=== PATIENT | female | born 1990 | race Two or more races ===

== ENCOUNTER 2019-08-02 23:23 | Emergency (ER) | payer MEDICAID ==
[~2019-08-02] VITALS: Ht 165.1 cm; Wt 140.0 kg
[2019-08-03] MEDS ORDERED: DIPHENHYDRAMINE 50MG/ML VIAL IV ONE (00:15)
[2019-08-03] MEDS ORDERED: SODIUM CHLORIDE 0.9% 1,000 ML IV SCH (00:32)
[2019-08-03] MEDS ORDERED: ONDANSETRON HCL 4MG/2ML INJ IV ONE (00:45)
[2019-08-03 04:51] VITALS: BP 119/53
== END 2019-08-03 04:53 | disposition home or self-care (01) ==
LOC: ER 23:23
DX: L27.1 Localized skin eruption due to drugs and medicaments taken internally (principal); T48.4X5A Adverse effect of expectorants, initial encounter; Y92.098 Other place in other non-institutional residence as the place of occurrence of the external cause
CPT/HCPCS: 96374; 96375; 99284; J1200; J2405

== ENCOUNTER 2019-08-19 14:03 | Emergency (ER) | payer MEDICAID ==
[~2019-08-19] VITALS: Ht 160 cm; Wt 97.0 kg
[2019-08-19] MEDS ORDERED: SODIUM CHLORIDE 0.9% 1,000 ML IV SCH (14:34)
[2019-08-19] MEDS ORDERED: FAMOTIDINE 20MG/2ML VIAL IV ONE (14:45)
[2019-08-19] MEDS ORDERED: DIPHENHYDRAMINE 50MG/ML VIAL IV ONE (14:45)
[2019-08-19] MEDS ORDERED: METHYLPREDNISOLONE SOD SUCC 125 MG/2 ML VIAL IV ONE (14:45)
[2019-08-19 16:44] VITALS: BP 126/60
== END 2019-08-19 16:45 | disposition home or self-care (01) ==
LOC: ER 14:03
DX: R06.02 Shortness of breath (principal); R05 Cough; R91.8 Other nonspecific abnormal finding of lung field; T48.4X5A Adverse effect of expectorants, initial encounter; Y92.89 Other specified places as the place of occurrence of the external cause
CPT/HCPCS: 71045; 96361; 96374; 96375; 99284; J1200; J2930; J3490

== ENCOUNTER 2019-08-21 11:19 | Emergency (ER) | payer MEDICAID ==
[~2019-08-21] VITALS: Ht 157.5 cm; Wt 92.0 kg
[2019-08-21 11:25] VITALS: BP 134/72
== END 2019-08-21 12:31 | disposition home or self-care (01) ==
LOC: ER 11:19
DX: R91.8 Other nonspecific abnormal finding of lung field (principal); R05 Cough; R06.02 Shortness of breath; Z98.890 Other specified postprocedural states; Z90.49 Acquired absence of other specified parts of digestive tract
CPT/HCPCS: 71045; 99283

== ENCOUNTER 2019-10-12 19:14 | Emergency (ER) | payer MEDICAID ==
[~2019-10-12] VITALS: Ht 172.7 cm; Wt 111.0 kg
[2019-10-12] MEDS ORDERED: EPINEPHRINE 0.1MG/ML (1:10,000) 10ML SYR ONE (19:36)
[2019-10-12] MEDS ORDERED: IPRATROPIUM/ALBUTEROL 0.5-3(2.5)MG/3ML NEB HHN ONE (19:45)
[2019-10-12] MEDS ORDERED: METHYLPREDNISOLONE SOD SUCC 125 MG/2 ML VIAL IV ONE (19:45)
[2019-10-12] MEDS ORDERED: EPINEPHRINE 1:1000 1 MG/ML AMP IM ONE (19:45)
[2019-10-12 20:01] LABS: CHLORIDE 106 mEq/L (98-107)
[2019-10-12 20:04] LABS: PROTHROMBIN TIME 10.6 sec (9.6-11.0)
[2019-10-12 20:16] LABS: BASOPHILS % 0.2 % (0.0-2.0); EOSINOPHILS % 0.7 % (0.0-5.0); HEMATOCRIT. 48.5 % (36.0-48.0); HEMOGLOBIN. 15.8 g/dL (12.0-16.0); LYMPHOCYTES % 60.9 % (20.0-50.0); MEAN CORPUSCULAR HEMOGLOBIN 26.2 pg (28.0-32.0); MEAN CORPUSCULAR VOLUME 80.5 fL (81.0-99.0); MEAN PLATELET VOLUME 10.8 fl (7.4-10.4); NEUTROPHILS % 34.2 % (40.0-76.0); PLATELET 475 x1000/uL (130-400); RED BLOOD CELL COUNT 6.02 mill/uL (4.2-5.4); RED CELL DISTRIBUTION WIDTH 15.4 % (11.6-14.6)
[2019-10-12 21:50] VITALS: BP 133/61
== END 2019-10-12 23:50 | disposition home or self-care (01) ==
LOC: ER 19:14
DX: R06.2 Wheezing (principal); R21 Rash and other nonspecific skin eruption
CPT/HCPCS: 36415; 71045; 80053; 85025; 85610; 94640; 96372; 96374; 99284; J2930; J3490; Z7610

== ENCOUNTER 2019-11-21 06:58 | Emergency (ER) | payer MEDICAID ==
[~2019-11-21] VITALS: Ht 167.6 cm; Wt 145.0 kg
[2019-11-21 07:05] VITALS: BP 133/95
[2019-11-21] MEDS ORDERED: KETOROLAC 60MG/2ML VIAL IM ONE (09:15)
[2019-11-21 09:28] LABS: CLARITY URINE CLEAR (CLEAR); COLOR URINE YELLOW (YELLOW); KETONES URINE NEGATIVE (NEGATIVE); LEUKOCYTE ESTERASE URINE 1+ (NEGATIVE); NITRITE URINE NEGATIVE (NEGATIVE); OCCULT BLOOD URINE TRACE (NEGATIVE); PROTEIN URINE NEGATIVE (NEGATIVE); SPECIFIC GRAVITY URINE 1.029 (1.005-1.030); UROBILINOGEN URINE 0.2 E.U./dL (0.2-1.0)
== END 2019-11-21 10:04 | disposition home or self-care (01) ==
LOC: ER 07:34
DX: N39.0 Urinary tract infection, site not specified (principal); M79.605 Pain in left leg
CPT/HCPCS: 81003; 81025; 96372; 99283; J1885

== ENCOUNTER 2021-04-27 23:59 | Emergency (ER) | payer MEDICAID ==
[~2021-04-27] VITALS: Ht 165.1 cm; Wt 154.9 kg
[2021-04-28 00:33] VITALS: BP 151/83
[2021-04-28] MEDS ORDERED: AZIT250T12 PO (05:10)
[2021-04-28] MEDS ORDERED: ALBU18HF2 IH (05:10)
[2021-04-28] MEDS ORDERED: NAPR-681 PO (05:10)
== END 2021-04-28 05:27 | disposition home or self-care (01) ==
LOC: ER 23:59
DX: U07.1 COVID-19 (principal); J20.9 Acute bronchitis, unspecified; Z90.49 Acquired absence of other specified parts of digestive tract; Z98.890 Other specified postprocedural states
CPT/HCPCS: 71045; 81025; 87070; 87430; 99284; C9803; U0003; U0005

== ENCOUNTER 2021-11-24 17:23 | Emergency (ER) | payer MEDICAID, OTHER ==
[~2021-11-24] VITALS: Ht 160 cm; Wt 101.0 kg
[~2021-11-24 17:23] MED LIST: ALBU18HF2 IH; AZIT250T12 PO; NAPR-681 PO
[2021-11-24] MEDS ORDERED: LORA-985 MT (20:03)
[2021-11-24] MEDS ORDERED: ALBU6.7H9 INH (20:03)
[2021-11-24] MEDS ORDERED: TUSSL MT (20:03)
[2021-11-24 21:30] VITALS: BP 145/83
== END 2021-11-24 23:28 | disposition home or self-care (01) ==
LOC: ER 17:23
DX: R05.9 Cough, unspecified (principal); L30.9 Dermatitis, unspecified; Z90.49 Acquired absence of other specified parts of digestive tract; Z98.890 Other specified postprocedural states
CPT/HCPCS: 71045; 81025; 99283

== ENCOUNTER 2022-04-02 09:37 | Emergency (ER) | payer MEDICAID, OTHER ==
[~2022-04-02] VITALS: Ht 167.6 cm; Wt 155.0 kg
[~2022-04-02 09:37] MED LIST changes: +ALBU6.7H3 INH; +LORA-985 MT; +TUSSL MT
[2022-04-02 09:44] VITALS: BP 148/95
[2022-04-02] MEDS ORDERED: IBUPROFEN 600MG TABLET PO ONE (10:45)
[2022-04-02] MEDS ORDERED: IBUP-2029 MT (10:58)
== END 2022-04-02 12:03 | disposition home or self-care (01) ==
LOC: ER 09:37
DX: J02.9 Acute pharyngitis, unspecified (principal); H92.03 Otalgia, bilateral; R03.0 Elevated blood-pressure reading, without diagnosis of hypertension
CPT/HCPCS: 99282

== ENCOUNTER 2023-09-16 01:26 | Emergency (ER) | payer MEDICAID, OTHER ==
[~2023-09-16] VITALS: Ht 167.6 cm; Wt 140.0 kg
[~2023-09-16 01:26] MED LIST changes: +IBUP-2029 MT
[2023-09-16 02:07] VITALS: BP_DIAS 79; O2SAT 99
[2023-09-16] MEDS ORDERED: AMOX-494 MT (03:35)
[2023-09-16 03:55] VITALS: BP_SYST 67; PULSE 65; RESP 18; TEMP 98.3
== END 2023-09-16 03:57 | disposition home or self-care (01) ==
LOC: ER 01:26
DX: H66.92 Otitis media, unspecified, left ear (principal); Z88.6 Allergy status to analgesic agent; Z98.890 Other specified postprocedural states; Z90.49 Acquired absence of other specified parts of digestive tract
CPT/HCPCS: 99283